=== PATIENT | male | born 1945 | race Hispanic/Latino ===

== ENCOUNTER 2016-10-02 09:48 | Outpatient (CLI) | payer MEDICARE, OTHER ==
[2016-10-02 10:42] LABS: Blood Urea Nitrogen 13 mg/dL (9-20)
[2016-10-02] MEDS ORDERED: NACL ONE (11:00)
--- NOTE | 2016-10-02 16:27 | Cat Scan Report ---
CT ANGIOGRAPHY OF THE ABDOMEN AND PELVIS AND BOTH LOWER EXTREMITIES WITH 3-D RECONSTRUCTED IMAGES: FINDINGS: Comparison is made to the most recent study performed on April 07, 2016. There is diffuse hypodensity of the liver with no focal abnormalities. The spleen, pancreas, and gallbladder are unremarkable. The kidneys are unremarkable except for a lower pole right renal cyst which is unchanged. No solid lesions or hydronephrosis. There are no pelvic masses or abnormal fluid collections. The prostate is enlarged. There has been interval placement of an aortoiliac endovascular stent. Ectasia of the distal abdominal aorta is noted. There is no evidence of endoleak. The celiac axis is patent. Calcified plaque is seen at the origin of the SMA with moderate stenosis, unchanged. Single renal arteries are patent. The JONATHAN is not opacified. Extensive multilevel calcified plaque is seen in the distal internal iliac arteries bilaterally, similar to the previous study. There is moderate stenosis of the origin of the left external iliac artery, slightly worse than on the previous study. Moderate stenosis of the origin of the right external iliac artery is present. Both hypogastric arteries are patent but demonstrate calcified plaque proximally, also unchanged. Moderate calcified plaque is seen within the common femorals bilaterally. RIGHT LOWER EXTREMITY: Multilevel calcified plaque with moderate stenosis is seen throughout the SFA and popliteal artery, and no significant change since the previous study. The trifurcation is patent and there is three-vessel runoff. LEFT LOWER EXTREMITY: Again, there is a stable degree of multilevel moderate stenosis throughout the SFA and popliteal artery. The trifurcation is patent and there is three-vessel runoff. IMPRESSION: 1. Hepatic steatosis. 2. Stable right renal cyst. 3. Prostatic enlargement. 4. 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 5. Interval placement of aortoiliac endovascular stent graft with no evidence of endoleak. Mild ectasia of the distal abdominal aorta is stable. 6. Extensive stable bilateral calcified plaque involving the distal common iliacs, external iliacs and common femorals bilaterally. 7. Right lower extremity: Stable multilevel moderate stenoses involving the SFA and popliteal arteries with three-vessel runoff. 8. Left lower extremity: Stable multilevel moderate stenoses of the SFA and popliteal arteries with three-vessel runoff.
== END 2016-10-02 09:49 | disposition home or self-care (01) ==
LOC: CT 09:48
PROVIDERS: ATTEND Radiology Diagnostic Radiology
DX: I70.213 Atherosclerosis of native arteries of extremities with intermittent claudication, bilateral legs (principal); N28.1 Cyst of kidney, acquired; N40.0 Benign prostatic hyperplasia without lower urinary tract symptoms; I77.811 Abdominal aortic ectasia; I70.8 Atherosclerosis of other arteries; Z95.828 Presence of other vascular implants and grafts
CPT/HCPCS: 36415; 75635; 82565; 84520; Q9967

== ENCOUNTER 2016-10-16 05:53 | Inpatient (IN) | payer MEDICARE, OTHER ==
--- NOTE | 2016-10-11 10:40 | Anesthesia Consultation ---
Anesthesia Consult and Med Hx Date of service: 10/11/16 - Airway Anesthetic Teeth Evaluation: Bridges (upper front), Partials (lower) ROM Head & Neck: Adequate Mental/Hyoid Distance: Adequate Mallampati Class: Class III Intubation Access Assessment: Possibly Difficult - Pre-Operative Health Status ASA Pre-Surgery Classification: ASA3 Proposed Anesthetic Plan: General - Pulmonary Hx Smoking: Yes (SMOKED FOR A TOTAL OF 5YRS QUIT 1995) - Cardiovascular System Hx Hypertension: Yes (4YRS) Hx Coronary Artery Disease: (high cholesterol) Hx Heart Attack/AMI: No Hx Peripheral Vascular Disease: Yes (s/p AAA endovascular repair) - Gastrointestinal Hx Gastroesophageal Reflux Disease: No - Other Systems Hx Alcohol Use: Yes (2 BEERS A WEEK) Hx Cancer: Yes (bladder CA 19 years ago) Hx Obesity: Yes (BMI 36.3)
[2016-10-11 11:08] LABS: Basophils % (Auto) 1.1 % (0.0-1.8); Eosinophils % (Auto) 3.8 % (0.0-4.3); Hematocrit 36.2 % (35.5-45.6); Hemoglobin 12.5 gm/dl (11.8-15.2); Mean Corpuscular HGB Conc 35 % (32-34); Mean Corpuscular Hemoglobin 35 pg (28-32); Mean Corpuscular Volume 100 fl (84-94); Platelet Count 213 K/mm3 (140-440); Red Cell Distribution Width 14.1 % (13.2-15.2); White Blood Count 6.9 K/mm3 (4.5-11.0)
[2016-10-11 11:18] LABS: INR 1.01 (0.87-1.13)
[2016-10-11 11:24] LABS: Anion Gap 18 mmol/L; BUN/Creatinine Ratio 17.77; Blood Urea Nitrogen 16 mg/dL (9-20); Calcium 9.3 mg/dL (8.4-10.2); Carbon Dioxide 28 mmol/L (22-30); Chloride 97.5 mmol/L (98-107); Glucose 190 mg/dL (75-100); Potassium 4.4 mmol/L (3.6-5.0); Sodium 139 mmol/L (137-145)
[2016-10-16] MEDS ORDERED: NACL 0.9% 1000 ML 1,000 ML IV SCH ×2 (06:00→13:00)
[2016-10-16] MEDS ORDERED: PEPCID IV NR (06:00)
[2016-10-16] MEDS ORDERED: ANCEF/STERILE WATER 2 GM/20 ML 20 ML IV NR (06:00)
[2016-10-16] MEDS ORDERED: VERSED IV NR (06:00)
[2016-10-16] MEDS ORDERED: NACL BACTERIOSTATIC INFILTRATI ONE (06:14)
[2016-10-16] MEDS ORDERED: DILAUDID IV PRN (06:28)
[2016-10-16] MEDS ORDERED: ZOFRAN IV PRN (06:28)
[2016-10-16] MEDS ORDERED: ZEMURON IV ONE (07:25)
[2016-10-16] MEDS ORDERED: XYLOCAINE MPF 2% ONE (07:25)
[2016-10-16] MEDS ORDERED: SUBLIMAZE ONE (07:25)
[2016-10-16] MEDS ORDERED: DIPRIVAN 10 MG/ML IV ONE (07:26)
[2016-10-16] MEDS ORDERED: NACL 0.9% 500 ML ONE (08:00)
[2016-10-16] MEDS ORDERED: NACL 0.9% 250ML ONE (08:00)
[2016-10-16] MEDS ORDERED: NACL ONE (08:00)
--- NOTE | 2016-10-16 08:16 | History and Physical Report ---
History of Present Illness Date of examination: 10/16/16 Date of admission: 10/16/16 05:53 Chief complaint: AAA History of present illness: Patient with a history of an abdominal aortic aneurysm. Previously undergone endovascular repair with development of a type III endoleak. Patient presents today complaining of left leg peripheral vascular disease with claudication and an enlarging abdominal aortic aneurysm Past History Past Medical History: PVD, other (AAA) Past Surgical History: Other (PEVAR) Social history: no significant social history Family history: no significant family history Medications and Allergies Allergies Allergy/AdvReac Type Severity Reaction Status Date / Time No Known Allergies Allergy Unverified 04/07/16 08:33 Home Medications Medication Instructions Recorded Confirmed Last Taken Type Aspirin [Adult Low Dose Aspirin EC] 81 mg PO QDAY 04/24/16 10/16/16 3 Days Ago History Finasteride [Finasteride] 5 mg PO QDAY 04/24/16 10/03/16 10/15/16 History Folic Acid [Folvite] 1 mg PO QDAY 04/24/16 10/03/16 10/15/16 History Lisinopril/Hydrochlorothiazide 20 - 25 mg PO QDAY 04/24/16 10/03/16 10/16/16 05: 20 History [Zestoretic 20-12.5 mg] Methotrexate Sodium [Methotrexate] 10 mg PO 1XW 04/24/16 10/03/16 10/15/16 History Simvastatin [Simvastatin] 20 mg PO HS 04/24/16 10/03/16 10/15/16 History Terazosin HCl 5 mg PO QDAY 04/24/16 10/03/16 10/15/16 History Clopidogrel Bisulfate [Plavix] 75 mg PO QDAY #30 tablet 05/02/16 10/03/16 05:20 Rx Active Meds: Active Medications Enoxaparin Sodium (Lovenox) 40 mg SUB-Q QDAY HORTENCIA Famotidine (Pepcid) 20 mg IV PREOP NR Stop: 10/16/16 23:59 Last Admin: 10/16/16 07:01 Dose: 20 mg Hydromorphone HCl (Dilaudid) 0.5 mg IV Q10MIN PRN PRN Reason: Pain , Severe (7-10) Stop: 10/16/16 11:59 Cefazolin Sodium (Ancef/Sterile Water 2 Gm/20 Ml) 20 mls @ 80 mls/hr IV PREOP NR PRN Reason: Protocol Stop: 10/16/16 23:59 Sodium Chloride (Nacl 0.9% 1000 Ml) 1,000 mls @ 42 mls/hr IV DIRECT HORTENCIA Last Admin: 10/16/16 06:45 Dose: 42 mls/hr Midazolam HCl (Versed) 2 mg IV PREOP NR Stop: 10/16/16 23:59 Last Admin: 10/16/16 06:59 Dose: 2 mg Review of Systems All systems: negative Exam - Constitutional Vitals: Temp Pulse Resp BP Pulse Ox 98.1 F 74 20 180/67 95 10/16/16 06:15 10/16/16 06:15 10/16/16 06:15 10/16/16 06:15 10/16/16 06:15 General appearance: Present: no acute distress, obese - EENT Eyes: Present: PERRL, EOM intact ENT: hearing intact - Neck Neck: Present: supple, normal ROM - Respiratory Respiratory effort: normal - Cardiovascular Rhythm: regular - Extremities Extremities: no ischemia Extremity abnormal: pulses diminished - Abdominal General gastrointestinal: Present: soft, non-tender Male genitourinary: Present: deferred - Rectal Rectal Exam: deferred - Integumentary Integumentary: Present: clear, warm - Musculoskeletal Musculoskeletal: strength equal bilaterally - Psychiatric Psychiatric: appropriate mood/affect, cooperative - Neurologic Neurologic: no focal deficits Results - Labs CBC & Chem 7: 10/11/16 10:15 10/11/16 10:15 Assessment and Plan Patient with a history of peripheral vascular disease and an enlarging abdominal aortic aneurysm with a type III endoleak presenting today for placement of abdominal aortic endograft.
--- NOTE | 2016-10-16 08:30 | Admit Criteria Form ---
Admission Criteria Documentation: AMBULATORY SURGERY EXCEPTION CRITERIA Ambulatory Surgery Exception Criteria ( Place 'X' for any and all applicable criteria): Surgery or procedure performed on ambulatory basis may require inpatient stay for[A] ANY ONE of the following(1)(2)(3)(4)(5)(6)(7)(8)(9): [X] I. A preoperative situation, condition, or finding that warrants inpatient stay as indicated by ANY ONE of the following: [] a) Inpatient care needed because of severity of a disease or condition rather than the surgery (eg, severe cardiac or respiratory disease, severe infection) (15) (16 ) (17) (18) [] b) Emergent procedure (eg, angioplasty for acute ischemia)(19) [X] c) Complex surgical approach or situation as indicated by ANY ONE of the following(3): [] i) Open approach needed instead of usual endoscopic, transcatheter, or other less invasive procedure [X] ii) Difficult approach because of previous operation [] iii) Airway monitoring required after open neck procedures(20)(21) [] iv) Large mass requiring unusually extensive dissection [] v) Additional complicating feature requiring inpatient care (eg, drain management)(22(23): [X] d) Major surgery in a pt with high anesthetic risk as indicated by ANY ONE of the following (2)(3)(5)(7)(8): [X] i) ASA risk class III or higher (severe systemic disease impairing function) [D] [] ii) Advanced age (eg, older than 85 years)(14)(24) [] iii) Symptomatic heart failure(25) [] iv) Symptomatic asthma or COPD(8)(21) [] v) Morbid obesity with hemodynamic or respiratory problems(20)( 21)(26)(27) [] vi) Obstructive sleep apnea(20)(21) [] vii) Former premature infants who are younger than 60 weeks [] viii) High risk for severe postoperative abnormalities (eg, severe postoperative hypocalcemia after parathyroidectomy for severe hyperparathyroidism)(27)( 28) [] ix) Unstable angina(25) [] e) Drug-related risk requiring inpatient stay as indicated by ANY ONE of the following(5)(10)(14)(32)(33) [] i) Procedure requires discontinuing drugs or other therapy (eg , antiarrhythmic medication, antiseizure medication), which necessitates inpatient observation or treatment.(18)(31) [] ii) Major surgery and high risk drug use as indicated by ANY ONE of the following: [] 1) Active abuse of cocaine or similar drug [] 2) Monoamine oxidase inhibitor use [] 3) Other drug identified as posing risk [] f) Inadequate outpatient care situation as indicated by ANY ONE of the following(5)(10)(14)(32)(33) [] i) Patient lives remote from medical facility and procedure has urgent complication potential, and temporary nearby residence cannot be arranged [] ii) Patient will have postprocedure incapacitation and inadequate assistance at home, or alternative level of care cannot be arranged. [] iii) Patient will have long general anesthesia or procedure side effect resolution time, and competent person to stay with patient on first postoperative night at home or alternative level of care cannot be arranged. []iv) Other inadequate outpatient situation that cannot be handled by other means [] II. A perioperative event, condition, or finding that warrants inpatient stay as indicated by ANY ONE of the following (1)(2)(3): [] a) Inadequate physiologic recovery: cardiovascular, respiratory, or hemodynamic status not normal or near preoperative baseline(18) [] b) Hemodynamic instability [] c) Patient not alert with near normal or baseline mental status [] d) Temperature not normal or as expected and not appropriate for outpatient treatment of condition [] e) Ambulatory or appropriate activity level status not yet achieved post procedure [E](34)(35)(36) [] f) Operative site not appropriate (eg, unexpected or excessive drainage or bleeding) [] g) Postoperative effects not resolved or adequately managed (eg, significant pain or vomiting not appropriate for outpatient or next level of care)(10)(12) [] h) Complicating features requiring inpatient care as indicated by ANY ONE of the following(37): [] i) Severe complications of procedure (eg, bowel injury, airway compromise, vascular injury,severe hemorrhage) [] ii) Extensive (eg, dissection far beyond usual scope of procedure ) or prolonged (eg, 120 minutes beyond usual) surgery needed requiring inpatient postoperative care [] iii) Conversion to an open or complex procedure that requires inpatient care (eg, open vs laparoscopic cholecystectomy, abdominal vs vaginal hysterectomy)(38) [] iv) Comorbid condition or test result identified during or post procedure that requires inpatient care (7) [] v) Malignant hyperthermia(30) [] vi) Other complicating feature requiring inpatient care(22)(23) Inpatient stay may be needed until ALL of the following are present (1)(2)(3)(4) (5)(6)(10)(14)(33)(40): []a) Physiologic recovery: cardiovascular, respiratory, and hemodynamic status normal or near preoperative baseline []b) Hemodynamic stability []c) Patient alert, with near normal or baseline mental status []d) Temperature appropriate: patient afebrile or temperature appropriate for outpt treatment of condition []e) Activity level appropriate: ambulatory or appropriate activity level post procedure []f) Operative site appropriate as indicated by ALL of the following: []i) Site dry or with expected drainage []ii) Any blood noted is as expected for procedure. []g) Postoperative effects resolved or managed as indicated by ALL of the following: []i) Pain management appropriate for outpatient (or next level of) care(10) []ii) Minimal nausea and vomiting: if present, successfully treated with oral medication(12) []iii) Headache, dizziness, or drowsiness (if present) are mild. []h) Voiding status acceptable as indicated by ANY ONE of the following: []i) Voiding spontaneously []ii) No voiding but instructions given for follow-up in 6 to 8 hours []iii) Urinary catheter in place, and instructions given for follow-up []i) Complicating features requiring inpatient care manageable at a lower level of care(37) []j) Comorbid conditions manageable at a lower level of care(37) The original [facility] content created by [employer] has been revised. The portions of the content which have been revised are identified through the use of italic text or in bold, and [facility] has neither reviewed nor approved the modified material. All other unmodified content is copyright [facility]. Please see references footnoted in the original [facility] edition 2016 Admission Criteria Met: Yes
[2016-10-16] MEDS ORDERED: QUELICIN ONE (08:41)
[2016-10-16] MEDS ORDERED: ePHEDrine SULFATE ONE (09:12)
[2016-10-16] MEDS ORDERED: OMNIPAQUE (240 MG) IV ONE (10:03)
[2016-10-16] MEDS ORDERED: NACL 0.9% 1000 ML IR ONE (10:03)
[2016-10-16] MEDS ORDERED: HEPARIN 10,000 UNITS/10 ML 4,000 UNIT in NACL 0.9% 1000 ML 1,000 ML IR ONE (10:04)
[2016-10-16] MEDS ORDERED: MARCAINE 0.5% INFILTRATI ONE ×2 (10:04)
[2016-10-16] MEDS ORDERED: HEPARIN 10,000 UNITS/10 ML 2,000 UNIT in NACL 0.9% 500 ML 500 ML IR ONE (10:05)
[2016-10-16] MEDS ORDERED: HEPARIN 10,000 UNITS/10 ML ONE (10:15)
[2016-10-16] MEDS ORDERED: DECADRON ONE (10:15)
[2016-10-16] MEDS ORDERED: DILAUDID ONE (10:21)
[2016-10-16] MEDS ORDERED: RIFADIN 600 MG in NACL 0.9% 50 ML IR ONE (10:30)
[2016-10-16] MEDS ORDERED: APRESOLINE ONE (11:39)
[2016-10-16] MEDS ORDERED: ZOFRAN ONE ×2 (11:44→12:27)
--- NOTE | 2016-10-16 12:06 | Operative Report ---
Operative Report Operative Report: Date of Procedure: 10/16/2016 Pre-operative Diagnosis: Abdominal Aortic Aneurysm without Mention of Rupture and PVD with Claudication Post-operative Diagnosis: Same Procedure(s): 1. Bilateral Femoral Artery Exposure 2. Bilateral Catheters and Aorta 3. Diagnostic Aortogram (Patient With a Clinical Change) 4. Endovascular Repair of Abdominal Aortic Aneurysm with: 1. 25 x 14 x 103 Endurant Stent Graft Main Body Ipsilateral Right 2. 16 x 10 x 124 Endurant Stent Graft Extension Right 3. 16 x 10 x 124 Endurant Stent Graft Extension Left 5. Left Femoral Endarterectomy with Bovine Patch Angioplasty 6. Radiologic Supervision and Interpretation Surgeon: Brandon Melchor M.D. Edge Trimming Machine Operator: Emmanuel Pratt M.D. Anesthesia: Gen. Endotracheal Anesthesia EBL: 300 mL Counts: Correct Complications: None Condition: Stable Findings: Successful repair of abdominal aortic aneurysm without evidence of endoleak at the end of the procedure. Left common femoral artery widely patent after repair. Specimen: Left femoral plaque Indication: The patient is a 71-year-old male with a history of abdominal aortic aneurysm repair with an Endologix stent graft. He presented to the office with complaints of left leg claudication. There was an attempt at revascularization of his left leg however it was discovered that his previously placed stent graft had a type III endoleak. He subsequently one a CTA of his abdomen that confirmed the endoleak and additionally identified a near total occlusion of his left common femoral artery likely secondary to a closure device. He was set up for endovascular repair of the aneurysm as well as repair of the common femoral artery lesion. He was given the risks, benefits, and alternative procedures and consented to the procedure. Description of Procedure: The patient was brought to the operating room and laid in supine position. After general endotracheal anesthesia was achieved he was prepped and draped in normal sterile fashion. A longitudinal incision was created in the left groin and carried down to the common femoral artery using sharp dissection. Sharp dissection was then used to dissect out the superficial femoral artery as well as profunda femoral artery and all 3 vessels were controlled with vessel loops. Ultrasound was used to identify the right common femoral artery and a small stab incision was then created. Hemostats were then used to bluntly dissect down to the anterior surface of the common femoral artery. Micropuncture technique was used to access the artery and a 6 [place] sheath was placed by Seldinger technique. 2 Perclose closure devices were then used 2 preclose arteriotomy by placing them at the 10:00 and 2:00 position respectively. An 8 [place] sheath was then placed by Seldinger technique. The patient was systemically heparinized and then an arteriotomy was created in the common femoral artery on the left using 11 blade and Michelle scissors. An 8 [place] Irish sheath was in place and the Bentson wire was advanced into the aorta. With the use of vertebral catheters through each sheath we were able to cannulate the initially placed endograft and advanced both catheters and wires into the proximal aorta. On the right side a Lunderquist wire was used to replace the Bentson wire. A pigtail catheter was then advanced up the left side. The 8 [place] sheath was then removed and the 25 x 14 x 103 Endurant Stent Graft Main Body was advanced up the right and an aortogram was performed to demonstrate the level of the renal arteries. The main body was then partially deployed exposing the contralateral gate. The crown was then released securing the graft in place. A vertebral catheter and Glidewire were used to cannulate the gate which was confirmed by x-rays in the vertebral catheter for pigtail catheter that we spun within the body of the graft. A Lunderquist wire was then advanced through the pigtail catheter into the proximal aorta and a hand injection was performed to the 8 Northern Irish sheath demonstrated in the level of the hypogastric artery. After this was identified the 16 x 10 x 124 Endurant Stent Graft Extension was advanced up the left and deployed against sure to preserve the hypogastric. The delivery sheath was removed and replaced with a 12 [place] Irish sheath. We then completed the deployment of the endograft on the ipsilateral side and removed the delivery catheter and replace this with a 14 [place] Irish sheath. A pigtail was advanced up the right side and a hand injection was performed demonstrating the level of the hypogastric artery. The 16 x 10 x 124 Endurant Stent Graft Extension was chosen and deployed ensuring that we preserve the hypogastric. The delivery sheath was removed and a Reliant balloon was advanced up the right side and angioplasty was performed at the proximal seal as well as at the overlap of the stent graft. The balloon was removed and advanced up the left side and the overlaps were angioplastied with the same balloon. We then use noncompliant 10 mm balloons to dilate the limbs and ensure that there were fully deployed. After angioplasty of pigtail catheter was advanced up the left side and a final arteriogram was performed and demonstrated the grafts were widely patent with brisk flow of contrast and no evidence of endoleak. The Lunderquist wire on the right was exchanged for a Bentson wire and the sheath was removed. The 2 previously placed Perclose devices were used to close the arteriotomy and the incision was then closed in 2 layers using a 3-0 Vicryl in interrupted fashion to reapproximate the deep dermal layer and a 4-0 Monocryl in interrupted fashion to reapproximate the subcuticular layer and the wound was dressed with Dermabond. On the left the wire and sheath were removed and the previously occlusive plaque was removed and the arteriotomy was closed using bovine pericardial patch. Prior to closing the arteriotomy I flashed all vessels, reclamped them, and lusty arteriotomy with heparinized saline. I completed the patch closure and the removed all clamps allow flow into the common femoral artery which had an excellent pulse. Hemostasis within the wound was achieved with a combination of Quick Clot and Surgicel. Once hemostasis was achieved the wound was closed in 3 layers using a 3-0 Vicryl, in running fashion, to close the fascia sangita, a 3-0 Vicryl in running fashion to close the deep dermal layer and a 4-0 Monocryl in running fashion to close the subcuticular layer. The skin was dressed with Dermabond. The patient tolerated the procedure well. All sponge, needle, and instrument counts were correct. The patient was taken to the recovery area in stable condition.
[2016-10-16] MEDS ORDERED: REGLAN IV ONE (12:30)
[2016-10-16] MEDS ORDERED: REGLAN ONE (12:37)
[2016-10-16] MEDS ORDERED: ZOFRAN IV ONE (12:43)
--- NOTE | 2016-10-16 13:09 | Post Anesthesia Evaluation ---
- Post Anesthesia Evaluation Patient Participated: Yes Airway Patent: Yes Stable Respiratory Function: Yes Temp > 96.8F: Yes Pain Manageable: Yes Adequeate Hydration: Yes Anesthesia Complications: No Block Receding Appropriately: Not Applicable
[2016-10-16] MEDS ORDERED: TRANSDERM-SCOP TD NR (13:48)
[2016-10-16] MEDS ORDERED: NACL 0.9% 1000 ML 1,000 ML ONE (14:28)
[2016-10-16] MEDS: NACL 0.9% 1000 ML 1,000 ML IV SCH (14:50)
[2016-10-16] MEDS: ANCEF/NS 1 GM/50 ML 50 ML IV SCH ×2 (16:58→22:12)
[2016-10-16] MEDS: ULTRAM PO PRN (19:51)
[2016-10-16] MEDS: MINIPRESS PO SCH (22:11)
[2016-10-16] MEDS: ZOCOR PO SCH (22:12)
[2016-10-17] MEDS: ULTRAM PO PRN ×2 (02:23→11:23)
[2016-10-17 04:51] LABS: Hematocrit 29.3 % (35.5-45.6); Hemoglobin 10.3 gm/dl (11.8-15.2)
[2016-10-17 05:18] LABS: Blood Urea Nitrogen 20 mg/dL (9-20); Carbon Dioxide 23 mmol/L (22-30); Chloride 98.3 mmol/L (98-107); Glucose 260 mg/dL (75-100); Potassium 4.3 mmol/L (3.6-5.0); Sodium 135 mmol/L (137-145)
[2016-10-17 05:20] LABS: Anion Gap 18 mmol/L
--- NOTE | 2016-10-17 08:38 | Consultation ---
History of Present Illness Consult date: 10/17/16 Reason for consult: other (AAA repair, claudication) History of present illness: 71 y/o CM, admitted to the ICU after recent AAA repair. States Hx/o claudication Sx , mostly LLE. AAA enlargement noted, admitted for vascular repair. Currently at ICU with no complains. No fever or bleeding reported overnight. No SOB, cough or chest pain. Past History Past Medical History: arthritis, CAD, PVD, other (AAA) Past Surgical History: Other (PEVAR) Social history: no significant social history Family history: no significant family history Medications and Allergies Allergies Allergy/AdvReac Type Severity Reaction Status Date / Time No Known Allergies Allergy Unverified 04/07/16 08:33 Home Medications Medication Instructions Recorded Confirmed Last Taken Type Aspirin [Adult Low Dose Aspirin EC] 81 mg PO QDAY 04/24/16 10/16/16 3 Days Ago History Finasteride [Finasteride] 5 mg PO QDAY 04/24/16 10/03/16 10/15/16 History Folic Acid [Folvite] 1 mg PO QDAY 04/24/16 10/03/16 10/15/16 History Lisinopril/Hydrochlorothiazide 20 - 25 mg PO QDAY 04/24/16 10/03/16 10/16/16 05: 20 History [Zestoretic 20-12.5 mg] Methotrexate Sodium [Methotrexate] 10 mg PO 1XW 04/24/16 10/03/16 10/15/16 History Simvastatin [Simvastatin] 20 mg PO HS 04/24/16 10/03/16 10/15/16 History Terazosin HCl 5 mg PO QDAY 04/24/16 10/03/16 10/15/16 History Clopidogrel Bisulfate [Plavix] 75 mg PO QDAY #30 tablet 05/02/16 10/03/16 05:20 Rx Active Meds: Active Medications Aspirin (Halfprin Ec) 81 mg PO QDAY [facility] Clopidogrel Bisulfate (Plavix) 75 mg PO QDAY [facility] Enoxaparin Sodium (Lovenox) 40 mg SUB-Q QDAY [facility] Finasteride (Proscar) 5 mg PO QDAY [facility] Folic Acid (Folvite) 1 mg PO QDAY [facility] Hydrochlorothiazide (Hctz) 12.5 mg PO QDAY [facility] Lisinopril (Zestril) 20 mg PO QDAY [facility] Methotrexate (Methotrexate(Dose Weekly Only)) 10 mg PO [place] [facility] Prazosin HCl (Minipress) 2 mg PO Q12HR [facility] Last Admin: 10/16/16 22:11 Dose: 2 mg Scopolamine (Transderm-Scop) 1 each TD ONCE NR Stop: 10/19/16 13:47 Last Admin: 10/16/16 13:57 Dose: 1 each Simvastatin (Zocor) 20 mg PO HS [facility] Last Admin: 10/16/16 22:12 Dose: 20 mg Tramadol HCl (Ultram) 50 mg PO Q6H PRN PRN Reason: Pain, Moderate (4-6) Last Admin: 10/17/16 02:23 Dose: 50 mg Review of Systems Cardiovascular: no chest pain, no orthopnea, no palpitations Respiratory: no cough, no cough with sputum, no excessive sputum, no hemoptysis , no shortness of breath, no wheezing Gastrointestinal: abdominal pain (surgical, /) Genitourinary Male: no dysuria, no hematuria, no flank pain, no discharge Musculoskeletal: morning stiffness, arthritis Neurological: no paralysis, no weakness, no parathesias, no numbness Physical Examination Vital signs: Vital Signs Temp Pulse Resp BP 97.3 F L 88 20 170/70 10/11/16 10:05 10/11/16 10:05 10/11/16 10:05 10/11/16 10:05 General appearance: no acute distress, other (obese) ENT: oropharynx moist, other (Mallampati II) Effort: normal Ascultation: Bilateral: clear (limited expansion) Gastrointestinal: normoactive bowel sounds, non-distended, other (clean surgical wounds,femoral) Integumentary: normal Extremities: no cyanosis normal mental status, non-focal exam, CN II-XII normal Results - Laboratory Findings CBC and BMP: 10/17/16 04:13 10/17/16 04:13 PT/INR, D-dimer PT 13.2 Sec. (12.2-14.9) 10/11/16 10:15 INR 1.01 (0.87-1.13) 10/11/16 10:15 Abnormal lab findings: Abnormal Labs 10/11/16 10/11/16 10/17/16 10:15 10:15 04:13 RBC 3.60 L Hgb 10.3 L Hct 29.3 L MCV 100 H MCH 35 H MCHC 35 H [place] % (Auto) 7.4 H Sodium Chloride 97.5 L Glucose 190 H Calcium 10/17/16 04:13 RBC Hgb Hct MCV MCH MCHC [place] % (Auto) Sodium 135 L Chloride Glucose 260 H Calcium 8.0 L Assessment and Plan AAA repair. Doing fine CAD HTN Arthritis, on MTX Obesity Rec Monitor pulse Watch x bleeding Monitor BP,adjust Tx as needed DVT prophylaxis OOB as tolerated, when OK with surgery Monitor O2 sat- noted in the low 90's with oxygen on CCT 31 min
[2016-10-17] MEDS ORDERED: NON-FORMULARY (Terazosin Hcl [Terazosin Hcl] 5 MG) PO SCH (10:00)
[2016-10-17] MEDS ORDERED: HYDROCHLOROTHIAZIDE PO SCH (10:00)
[2016-10-17] MEDS ORDERED: LISINOPRIL PO SCH (10:00)
[2016-10-17] MEDS: FOLVITE PO SCH (10:04)
[2016-10-17] MEDS: HALFPRIN EC PO SCH (10:05)
[2016-10-17] MEDS: HCTZ PO SCH (10:05)
[2016-10-17] MEDS: LOVENOX SUB-Q SCH (10:05)
[2016-10-17] MEDS: PROSCAR PO SCH (10:06)
[2016-10-17] MEDS: MINIPRESS PO SCH ×2 (10:06→21:42)
[2016-10-17] MEDS: PLAVIX PO SCH (10:06)
[2016-10-17] MEDS: ZESTRIL PO SCH (10:07)
--- NOTE | 2016-10-17 12:13 | Progress Note ---
Assessment and Plan Postoperative day #1 after endovascular repair of abdominal aortic aneurysm and left common femoral endarterectomy with patch angioplasty. The patient has no complaints at this time. We will remove his Melchor this morning and if the patient is to ambulate and urinate he will be able to be discharged later today. He was given discharge instructions and expressed understanding. Subjective Date of service: 10/17/16 Interval history: The patient is without complaints. He states that his pain is well-controlled with oral narcotics. Objective - Constitutional Vitals: Vital Signs - 12hr 10/17/16 10/17/16 10/17/16 00:26 00:28 00:52 Temperature 98.0 F Pulse Rate 85 85 Pulse Rate [ Left Dorsalis Pedis] Pulse Rate [ Left Posterior Tibial] Pulse Rate [ Right Dorsalis Pedis] Pulse Rate [ Right Posterior Tibial] Respiratory 16 15 Rate Blood Pressure 146/60 146/60 O2 Sat by Pulse 92 90 Oximetry 10/17/16 10/17/16 10/17/16 01:00 01:06 01:12 Temperature 98.0 F Pulse Rate 85 85 87 Pulse Rate [ Left Dorsalis Pedis] Pulse Rate [ Left Posterior Tibial] Pulse Rate [ Right Dorsalis Pedis] Pulse Rate [ Right Posterior Tibial] Respiratory 16 16 14 Rate Blood Pressure 152/63 152/63 152/63 O2 Sat by Pulse 91 93 90 Oximetry 10/17/16 10/17/16 10/17/16 02:00 02:08 02:23 Temperature 98.5 F Pulse Rate 81 81 Pulse Rate [ Left Dorsalis Pedis] Pulse Rate [ Left Posterior Tibial] Pulse Rate [ Right Dorsalis Pedis] Pulse Rate [ Right Posterior Tibial] Respiratory 18 15 16 Rate Blood Pressure 154/61 154/61 O2 Sat by Pulse 92 93 Oximetry 10/17/16 10/17/16 10/17/16 02:29 02:32 03:00 Temperature Pulse Rate 84 84 Pulse Rate [ 84 Left Dorsalis Pedis] Pulse Rate [ 84 Left Posterior Tibial] Pulse Rate [ 84 Right Dorsalis Pedis] Pulse Rate [ 84 Right Posterior Tibial] Respiratory 15 13 Rate Blood Pressure 154/61 141/57 O2 Sat by Pulse 95 91 90 Oximetry 10/17/16 10/17/16 10/17/16 03:12 03:18 04:00 Temperature 98.5 F Pulse Rate 86 86 87 Pulse Rate [ Left Dorsalis Pedis] Pulse Rate [ Left Posterior Tibial] Pulse Rate [ Right Dorsalis Pedis] Pulse Rate [ Right Posterior Tibial] Respiratory 17 17 16 Rate Blood Pressure 141/57 141/57 154/62 O2 Sat by Pulse 93 91 89 Oximetry 10/17/16 10/17/16 10/17/16 04:16 04:28 04:32 Temperature 98.5 F Pulse Rate 86 83 Pulse Rate [ Left Dorsalis Pedis] Pulse Rate [ Left Posterior Tibial] Pulse Rate [ Right Dorsalis Pedis] Pulse Rate [ Right Posterior Tibial] Respiratory 16 20 Rate Blood Pressure 154/62 154/62 O2 Sat by Pulse 91 90 Oximetry 10/17/16 10/17/16 10/17/16 04:37 04:50 04:52 Temperature Pulse Rate 85 84 Pulse Rate [ Left Dorsalis Pedis] Pulse Rate [ Left Posterior Tibial] Pulse Rate [ 86 Right Dorsalis Pedis] Pulse Rate [ Right Posterior Tibial] Respiratory 18 19 19 Rate Blood Pressure 154/62 154/62 O2 Sat by Pulse 96 89 91 Oximetry 10/17/16 10/17/16 10/17/16 04:54 05:00 06:00 Temperature 98.2 F 98.3 F Pulse Rate 89 84 88 Pulse Rate [ Left Dorsalis Pedis] Pulse Rate [ Left Posterior Tibial] Pulse Rate [ Right Dorsalis Pedis] Pulse Rate [ Right Posterior Tibial] Respiratory 18 17 18 Rate Blood Pressure 154/62 154/62 159/64 O2 Sat by Pulse 96 91 89 Oximetry 10/17/16 10/17/16 10/17/16 06:04 07:00 07:50 Temperature Pulse Rate 89 83 Pulse Rate [ Left Dorsalis Pedis] Pulse Rate [ Left Posterior Tibial] Pulse Rate [ Right Dorsalis Pedis] Pulse Rate [ Right Posterior Tibial] Respiratory 18 14 Rate Blood Pressure 159/64 159/64 O2 Sat by Pulse 90 91 96 Oximetry 10/17/16 10/17/16 10/17/16 08:00 09:00 09:24 Temperature 98.4 F Pulse Rate 82 86 86 Pulse Rate [ Left Dorsalis Pedis] Pulse Rate [ Left Posterior Tibial] Pulse Rate [ Right Dorsalis Pedis] Pulse Rate [ Right Posterior Tibial] Respiratory 19 19 18 Rate Blood Pressure 146/55 145/58 145/58 O2 Sat by Pulse 92 91 92 Oximetry 10/17/16 10/17/16 10/17/16 09:32 09:34 10:00 Temperature 98.6 F Pulse Rate 92 H 86 91 H Pulse Rate [ Left Dorsalis Pedis] Pulse Rate [ Left Posterior Tibial] Pulse Rate [ Right Dorsalis Pedis] Pulse Rate [ Right Posterior Tibial] Respiratory 20 16 13 Rate Blood Pressure 146/55 145/58 145/58 O2 Sat by Pulse 92 91 91 Oximetry 10/17/16 10/17/16 10/17/16 10:06 10:07 11:00 Temperature Pulse Rate 82 83 82 Pulse Rate [ Left Dorsalis Pedis] Pulse Rate [ Left Posterior Tibial] Pulse Rate [ Right Dorsalis Pedis] Pulse Rate [ Right Posterior Tibial] Respiratory 20 Rate Blood Pressure 145/61 145/61 153/47 O2 Sat by Pulse 92 Oximetry 10/17/16 10/17/16 11:22 11:24 Temperature Pulse Rate 91 H 91 H Pulse Rate [ Left Dorsalis Pedis] Pulse Rate [ Left Posterior Tibial] Pulse Rate [ Right Dorsalis Pedis] Pulse Rate [ Right Posterior Tibial] Respiratory 18 20 Rate Blood Pressure 153/47 153/47 O2 Sat by Pulse 92 91 Oximetry General appearance: Present: no acute distress - Neck Neck: supple - Respiratory Respiratory: bilateral: CTA - Breasts Breasts: deferred - Cardiovascular Rhythm: regular Extremities: pulses intact (left pedal pulses are intact), normal temperature Extremity abnormal: other (left groin incision is clean dry and intact without any evidence of hematoma, right groin stick without evidence of hematoma) - Gastrointestinal General gastrointestinal: Present: soft, non-tender, non-distended - Integumentary Integumentary: clear - Labs CBC & Chem 7: 10/17/16 04:13 10/17/16 04:13 Labs: Abnormal lab results 10/17/16 10/17/16 Range/Units 04:13 04:13 Hgb 10.3 L (11.8-15.2) gm/dl Hct 29.3 L (35.5-45.6) % Sodium 135 L (137-145) mmol/L Glucose 260 H (75-100) mg/dL Calcium 8.0 L (8.4-10.2) mg/dL
--- NOTE | 2016-10-17 12:22 | Short Stay Summary ---
Short Stay Documentation Date of service: 10/17/16 - History Past Medical History: arthritis, CAD, PVD, other (AAA) Past Surgical History: Other (PEVAR) Social history: no significant social history - Allergies and Medications Current Medications: Allergies No Known Allergies Allergy (Unverified 04/07/16 08:33) Home Medications Medication Instructions Recorded Confirmed Last Taken Type Aspirin [Adult Low Dose Aspirin EC] 81 mg PO QDAY 04/24/16 10/16/16 3 Days Ago History Finasteride [Finasteride] 5 mg PO QDAY 04/24/16 10/03/16 10/15/16 History Folic Acid [Folvite] 1 mg PO QDAY 04/24/16 10/03/16 10/15/16 History Lisinopril/Hydrochlorothiazide 20 - 25 mg PO QDAY 04/24/16 10/03/16 10/16/16 05: 20 History [Zestoretic 20-12.5 mg] Methotrexate Sodium [Methotrexate] 10 mg PO 1XW 04/24/16 10/03/16 10/15/16 History Simvastatin [Simvastatin] 20 mg PO HS 04/24/16 10/03/16 10/15/16 History Terazosin HCl 5 mg PO QDAY 04/24/16 10/03/16 10/15/16 History Clopidogrel Bisulfate [Plavix] 75 mg PO QDAY #30 tablet 05/02/16 10/03/16 05:20 Rx HYDROcodone/APAP 7.5-325 [[place] 1 each PO Q6HR PRN #60 tablet 10/17/16 Unknown Rx 7.5/325] Active Medications Aspirin (Halfprin Ec) 81 mg PO QDAY [facility] Last Admin: 10/17/16 10:05 Dose: 81 mg Clopidogrel Bisulfate (Plavix) 75 mg PO QDAY [facility] Last Admin: 10/17/16 10:06 Dose: 75 mg Enoxaparin Sodium (Lovenox) 40 mg SUB-Q QDAY [facility] Last Admin: 10/17/16 10:05 Dose: 40 mg Finasteride (Proscar) 5 mg PO QDAY [facility] Last Admin: 10/17/16 10:06 Dose: 5 mg Folic Acid (Folvite) 1 mg PO QDAY [facility] Last Admin: 10/17/16 10:04 Dose: 1 mg Hydrochlorothiazide (Hctz) 12.5 mg PO QDAY [facility] Last Admin: 10/17/16 10:05 Dose: 12.5 mg Lisinopril (Zestril) 20 mg PO QDAY [facility] Last Admin: 10/17/16 10:07 Dose: 20 mg Methotrexate (Methotrexate(Dose Weekly Only)) 10 mg PO [place] [facility] Prazosin HCl (Minipress) 2 mg PO Q12HR [facility] Last Admin: 10/17/16 10:06 Dose: 2 mg Scopolamine (Transderm-Scop) 1 each TD ONCE NR Stop: 10/19/16 13:47 Last Admin: 10/16/16 13:57 Dose: 1 each Simvastatin (Zocor) 20 mg PO HS [facility] Last Admin: 10/16/16 22:12 Dose: 20 mg Tramadol HCl (Ultram) 50 mg PO Q6H PRN PRN Reason: Pain, Moderate (4-6) Last Admin: 10/17/16 11:23 Dose: 50 mg - Physical exam Breasts: deferred Extremities: pulses intact (left pedal pulses are intact), normal temperature - Brief post op/procedure progress note Date of procedure: 10/17/16 Pre-op diagnosis: AAA and PVD wit Left Leg Claudication Post-op diagnosis: same Procedure: 1. Bilateral Femoral Artery Exposure 2. Bilateral Catheters and Aorta 3. Diagnostic Aortogram (Patient With a Clinical Change) 4. Endovascular Repair of Abdominal Aortic Aneurysm with: 1. 25 x 14 x 103 Endurant Stent Graft Main Body Ipsilateral Right 2. 16 x 10 x 124 Endurant Stent Graft Extension Right 3. 16 x 10 x 124 Endurant Stent Graft Extension Left 5. Left Femoral Endarterectomy with Bovine Patch Angioplasty 6. Radiologic Supervision and Interpretation Anesthesia: GETA Surgeon: MSAOOD MCCULLOUGH Estimated blood loss: other (300 mL) Condition: stable - Disposition Condition at discharge: Good Disposition: STILL A PATIENT Short Stay Discharge Plan Activity: no driving until cleared by PCP, other (no heavy lifting until cleared ) Diet: regular Wound: open to air, keep clean and dry, other (ok to wash the wound in soap and water but do not soak in water) Follow up with: MASOOD MCCULLOUGH MD [Staff Physician] - 14 Days Prescriptions: HYDROcodone/APAP 7.5-325 [[place] 7.5/325] 1 each PO Q6HR PRN #60 tablet PRN Reason: Pain
[2016-10-17] MEDS ORDERED: NACL 0.9% 1000 ML 1,000 ML IV SCH (18:00)
[2016-10-17] MEDS: ZOCOR PO SCH (21:43)
[2016-10-18] MEDS: NACL 0.9% 1000 ML 1,000 ML IV SCH (04:36)
[2016-10-18] MEDS: MINIPRESS PO SCH (09:54)
[2016-10-18] MEDS: HALFPRIN EC PO SCH (09:54)
[2016-10-18] MEDS: ZESTRIL PO SCH (09:55)
[2016-10-18] MEDS: HCTZ PO SCH (09:55)
[2016-10-18] MEDS: FOLVITE PO SCH (09:55)
[2016-10-18] MEDS: PLAVIX PO SCH (09:55)
[2016-10-18] MEDS: PROSCAR PO SCH (09:56)
[2016-10-18] MEDS: LOVENOX SUB-Q SCH (09:56)
[2016-10-18 12:21] VITALS: BP 165/70
--- NOTE | 2016-10-18 12:55 | Progress Note ---
Assessment and Plan Patient status post endovascular abdominal aortic aneurysm repair with left femoral endarterectomy. His postoperative urinary retention appears to have resolved. Patient be discharged later today. Discharge instructions have been given to the patient at the bedside. Patient called stating he had an elevated temp. Suspect this is likely due to atelectasis, encouraged incentive spirometry. Informed patient if his fever persist additional symptoms develop, he should contact our office following discharge. - Patient Problems (1) Abdominal aortic aneurysm without rupture Current Visit: Yes Status: Acute (2) Atherosclerosis of [place] arteries of extremity with intermittent claudication Current Visit: Yes Status: Acute (3) Urinary retention Current Visit: Yes Status: Acute Subjective Date of service: 10/18/16 Interval history: Patient is awake and alert without specific complaint at present. He's been able to void without difficulty all morning. Objective - Constitutional Vitals: Vital Signs - 12hr 10/18/16 10/18/16 10/18/16 07:30 07:55 09:54 Temperature 100.2 F H Pulse Rate 100 H Pulse Rate [ Left Radial] Pulse Rate [ 94 H Right Radial] Respiratory 20 Rate Blood Pressure 198/90 Blood Pressure [Left Arm] Blood Pressure 199/84 [Right Arm] O2 Sat by Pulse 90 92 Oximetry 10/18/16 10/18/16 11:19 12:47 Temperature 100.2 F H 98.3 F Pulse Rate Pulse Rate [ 113 H 92 H Left Radial] Pulse Rate [ Right Radial] Respiratory 24 Rate Blood Pressure Blood Pressure 165/70 [Left Arm] Blood Pressure [Right Arm] O2 Sat by Pulse 94 Oximetry General appearance: Present: no acute distress - EENT Eyes: EOM intact ENT: hearing intact - Respiratory Respiratory effort: normal Extremities: no ischemia, normal temperature, abnormal (incisions intact with moderate terrance-Incisional ecchymosis. No erythema or drainage appreciated.) - Labs CBC & Chem 7: 10/17/16 04:13 10/17/16 04:13
[2016-10-22] MEDS ORDERED: METHOTREXATE(DOSE WEEKLY ONLY) PO SCH (10:00)
== END 2016-10-18 13:15 | disposition home or self-care (01) | DRG 269 ==
LOC: 3A 05:53 → CC1 12:01 → 3A 10-17 21:48
PROVIDERS: ADMIT Surgery Vascular Surgery; ATTEND Surgery Vascular Surgery
PROC: 04V03FZ Restriction of Abdominal Aorta with Branched or Fenestrated Intraluminal Device, Three or More Arteries, Percutaneous Approach (ICD-10-PCS; principal; 2016-10-16)
PROC: 04CL0ZZ Extirpation of Matter from Left Femoral Artery, Open Approach (ICD-10-PCS; 2016-10-16)
PROC: 04UL0KZ Supplement Left Femoral Artery with Nonautologous Tissue Substitute, Open Approach (ICD-10-PCS; 2016-10-16)
DX: T82.330A Leakage of aortic (bifurcation) graft (replacement), initial encounter (principal); I71.4 Abdominal aortic aneurysm, without rupture; I10 Essential (primary) hypertension; E66.9 Obesity, unspecified; E78.00 Pure hypercholesterolemia, unspecified; I25.10 Atherosclerotic heart disease of native coronary artery without angina pectoris; M19.90 Unspecified osteoarthritis, unspecified site; I70.219 Atherosclerosis of native arteries of extremities with intermittent claudication, unspecified extremity; R33.8 Other retention of urine; E78.2 Mixed hyperlipidemia; Z87.891 Personal history of nicotine dependence; Z85.51 Personal history of malignant neoplasm of bladder; Z68.36 Body mass index [BMI] 36.0-36.9, adult; Z98.890 Other specified postprocedural states; Z79.82 Long term (current) use of aspirin; Z79.899 Other long term (current) drug therapy; Z79.02 Long term (current) use of antithrombotics/antiplatelets; Z83.3 Family history of diabetes mellitus; Z80.9 Family history of malignant neoplasm, unspecified; Y83.8 Other surgical procedures as the cause of abnormal reaction of the patient, or of later complication, without mention of misadventure at the time of the procedure
CPT/HCPCS: 36415; 36620; 75625; 75952; 80048; 85014; 85018; 85025; 85610; 86850; 86900; 86901; 94760; C1725; C1760; C1768; C1769; C1887; C1894; C2629; J0330; J0360; J0690; J1100; J1170; J1644; J1650; J2250; J2405; J2704; J2765; J3010; J3490; J7030; J7040; J7050; Q9966

== ENCOUNTER 2017-01-11 08:50 | Outpatient (CLI) | payer MEDICARE, OTHER ==
[2017-01-11 09:22] LABS: Blood Urea Nitrogen 27 mg/dL (9-20)
[2017-01-11] MEDS ORDERED: NACL ONE (09:33)
--- NOTE | 2017-01-12 11:39 | Cat Scan Report ---
CT ANGIOGRAM ABDOMEN/FEMORAL ABDOMINAL AORTA: INDICATION: Atherosclerosis [place] arteries of extremity with intermittent claudication bilateral. COMPARISON: 10/02/2016. FINDINGS: CT angiogram of the abdomen, pelvis and both lower extremities performed. Axial, sagittal, coronal and computer-generated MIP reconstructions obtained. LUNG BASES: Mild lingular/left lower lobe peripheral 1.8 cm probable scarring partially imaged, axial image 1, series 2. Normal heart size with silhouette again exaggerated due to prominent pericardial fat pad. ABDOMEN: Subtle diffuse fatty hepatic infiltration again suspected. Otherwise unremarkable liver, spleen, gallbladder, pancreas, adrenals and IVC. No hydronephrosis with mild bilateral perinephric stranding and a 2.7 cm right lower renal cortical simple cyst again seen. Left kidney again noted slightly low-lying/ptotic. No ascites or size significant adenopathy. Nonopacified GI tract evaluation limited, though grossly nonobstructive. Mild colonic stool. Stable right lower quadrant abdominal wall mesh hernia repair clips. CTA images again demonstrate patent celiac axis and SMA, though some narrowing at the origins again suspected. Mild atherosclerotic calcifications. Patent, single bilateral renal arteries. Maximum [place] distal aortic caliber of 2.9 cm, axial image 172, series 2. Aortic stent again noted with its proximal extent at the level of the SMA. Bilateral iliac stents also again noted patent. No endoleak identified. JONATHAN again not opacified. PELVIS: Bilateral internal and external iliac arteries again demonstrate atherosclerotic calcifications and appear patent. Approximately 4.5 cm AP x 5.3 cm transverse prostate impresses upon the bladder base and may be correlated for clinically and with PSA. Otherwise grossly unremarkable non-opacified urinary bladder, seminal vesicles and the rectosigmoid. No free fluid or significant adenopathy. Bilateral fat containing inguinal hernias again noted, approximately 2.2 cm on the right and 4.7 cm diameter on the left. Small right hydrocele also again seen. Possible iatrogenic stranding at the left groin is new, axial images [id number], series 2 with a new 2.8 x 2 cm focal simple attenuation fluid collection, axial image 358, series 2. RIGHT LOWER EXTREMITY: Common, superficial and deep femoral and popliteal arteries patent with diffuse atherosclerotic calcifications with various degree of stenoses. Trifurcation again noted patent with three-vessel runoff in the lower leg. Anterior tibial and peroneal arteries taper at or just above the ankle while the posterior tibial artery continues patent below it. LEFT LOWER EXTREMITY: Common, superficial and deep femoral and popliteal arteries demonstrate diffuse atherosclerotic calcifications with various degree of stenoses, though remain patent. Trifurcation also noted patent with three-vessel runoff below the knee. Peroneal artery tapers at or just above the ankle. Patent anterior tibial artery noted at the ankle while patent posterior tibial artery continues below it. Stable postsurgical changes along the lower leg noted anterior to the tibia. New/increased diffuse subcutaneous stranding/edema also noted below the knee, lateral more than medial as on axial series 2, images [id number], extending to/just beyond the ankle. Multilevel imaged spinal and mild knee degenerative changes. CONCLUSION: 1. Interval iatrogenic/postsurgical changes at the left groin suspected with a small fluid collection, as described. 2. New/increased left leg soft tissue swelling, greatest distally below the knee, as described. 3. Stable vascular appearance, including diffuse atherosclerotic involvement with various degree of stenoses, aortobiiliac stents without evidence of endoleak and bilateral 3 vessel runoff below the knee, as described. Mild ectasia of the distal abdominal aorta is also stable. 4. Various other incidental findings, including an enlarged prostate, right renal cyst and fatty liver, amongst others, as above. Thank you for the opportunity to participate in this patient's care.
== END 2017-01-11 08:51 | disposition home or self-care (01) ==
LOC: CT 08:50
PROVIDERS: ATTEND Surgery Vascular Surgery
DX: I10 Essential (primary) hypertension (principal); I70.213 Atherosclerosis of native arteries of extremities with intermittent claudication, bilateral legs; I71.4 Abdominal aortic aneurysm, without rupture; I80.9 Phlebitis and thrombophlebitis of unspecified site; I87.2 Venous insufficiency (chronic) (peripheral); N28.1 Cyst of kidney, acquired; I70.0 Atherosclerosis of aorta; K40.90 Unilateral inguinal hernia, without obstruction or gangrene, not specified as recurrent; N43.3 Hydrocele, unspecified; N40.0 Benign prostatic hyperplasia without lower urinary tract symptoms; K76.0 Fatty (change of) liver, not elsewhere classified; E78.2 Mixed hyperlipidemia; R60.9 Edema, unspecified; M79.89 Other specified soft tissue disorders; Z95.5 Presence of coronary angioplasty implant and graft
CPT/HCPCS: 36415; 75635; 82565; 84520; Q9967